=== PATIENT | male | born 1940 | race American Indian/Alaskan Native ===

== ENCOUNTER 2019-09-18 14:15 | Emergency (ER) | payer MEDICARE ==
[2019-09-18 14:39] VITALS: BP 100/60
--- NOTE | 2019-09-18 15:09 | Emergency Department Report ---
ED Shortness of Breath HPI - General Chief Complaint: Dyspnea/Respdistress Stated Complaint: SOB Time Seen by Provider: 09/18/19 15:03 Source: EMS Mode of arrival: Stretcher Limitations: No Limitations - History of Present Illness Initial Comments: Patient is an 78-year-old male that presents emergency room with complaints of shortness of breath. Patient states he is feeling more short of breath. Patient states he discharged from [facility] yesterday. Patient states he recently had a right knee replacement and then diagnosed with a PE. Patient is currently on request. Patient states shortness of breath is worsening. Patient denies chest pain. Patient denies fever and chills per patient denies cough. Patient states his shortness of breath is worse with exertion and movement. Patient states his shortness of breath is better with rest. Patient states when EMS picked him up he asked for them to take him to [place] but the ambulance staff refuse. Patient states that his oxygen saturation was 96% when checked by EMS. Patient states that EMS put him on 3 L of oxygen and it made him feel better. MD Complaint: shortness of breath -: Sudden Severity: severe Consistency: constant Improves With: oxygen, rest Worsens With: exertion, movement Known History Of: other Context: other Associated Symptoms: denies other symptoms Treatments Prior to Arrival: oxygen - Related Data Home Oxygen Therapy: No ED Review of Systems ROS: Stated complaint: SOB Other details as noted in HPI Constitutional: denies: chills, fever Eyes: denies: eye pain, eye discharge, vision change ENT: denies: ear pain, throat pain Respiratory: shortness of breath, SOB with exertion, SOB at rest. denies: cough, wheezing Cardiovascular: dyspnea on exertion. denies: chest pain, palpitations Endocrine: no symptoms reported Gastrointestinal: denies: abdominal pain, nausea, diarrhea Genitourinary: denies: urgency, dysuria Musculoskeletal: denies: back pain, joint swelling, arthralgia Skin: denies: rash, lesions Neurological: denies: headache, weakness, paresthesias Psychiatric: denies: anxiety, depression Hematological/Lymphatic: denies: easy bleeding, easy bruising ED Past Medical Hx - Past Medical History Previous Medical History?: Yes Hx Hypertension: Yes Hx Pulmonary Embolism: Yes - Surgical History Past Surgical History?: Yes Additional Surgical History: Knee surgery right 09/12/19 - Family History Family history: no significant - Social History Smoking Status: Never Smoker Substance Use Type: None ED Physical Exam - General Limitations: No Limitations General appearance: alert, in no apparent distress - Head Head exam: Present: atraumatic, normocephalic - Eye Eye exam: Present: normal appearance - ENT ENT exam: Present: mucous membranes moist - Neck Neck exam: Present: normal inspection - Respiratory Respiratory exam: Present: normal lung sounds bilaterally. Absent: respiratory distress - Cardiovascular Cardiovascular Exam: Present: regular rate, normal rhythm. Absent: systolic murmur, diastolic murmur, rubs, gallop - GI/Abdominal GI/Abdominal exam: Present: soft, normal bowel sounds - Rectal Rectal exam: Present: deferred - Extremities Exam Extremities exam: Present: normal inspection - Back Exam Back exam: Present: normal inspection - Neurological Exam Neurological exam: Present: alert, oriented X3 - Psychiatric Psychiatric exam: Present: normal affect, normal mood - Skin Skin exam: Present: warm, dry, intact, normal color. Absent: rash ED Course Vital Signs 09/18/19 09/18/19 14:30 16:39 Pulse Rate 89 Respiratory 18 18 Rate Blood Pressure 100/60 O2 Sat by Pulse 99 99 Oximetry - Reevaluation(s) Reevaluation #1: Initial evaluation done. Patient and family member have requested the patient be transferred to [place]. Patient and family are states that they asked to go to [place] but EMS refused. I will consult with [place] transfer center. 09/18/19 15:03 Reevaluation #2: Patient has decided to sign out AMA. Patient refuses transfer. Patient states he feels fine and wants to go home. Patient signed AMA form. Patient also signed a refusal transfer form. I discussed the risks with patient and family. Both voiced understanding of risks. 09/18/19 15:59 - Consultations Consultation #1: [place] transfer center consult. 09/18/19 15:09 Patient has been accepted for transfer to [facility] by Dr. Kenney. Dr. Kenney has accepted the patient. 09/18/19 15:45 ED Medical Decision Making - Medical Decision Making Patient is an 78-year-old male that presents emergency room with complaints of shortness of breath. Patient recently discharged from [place] less than 24 hours ago. Patient was diagnosed with a PE 1001 I look was. Patient initially stated he wanted be transferred back to [place]. I facilitated transfer back to [place] and then when it was time to be transferred patient decided to sign out AMA. I discussed all the risks with patient. Patient voiced understanding of risks. Patient signed AMA form patient also signed the refusal transfer form. Patient given discharge instructions. Patient given return to ER precautions. - Differential Diagnosis shortness of breath. PE. Critical care attestation.: If time is entered above; I have spent that time in minutes in the direct care of this critically ill patient, excluding procedure time. ED Disposition Clinical Impression: SOB (shortness of breath), BROWN (dyspnea on exertion) Pulmonary embolism Qualifiers: Pulmonary embolism type: unspecified Chronicity: acute Acute cor pulmonale presence: without acute cor pulmonale Qualified Code(s): I26.99 - Other pulmonary embolism without acute cor pulmonale Disposition: 07 LEFT AGAINST MED ADVICE Is pt being admited?: No Does the pt Need Aspirin: No Condition: Undetermined Additional Instructions: Patient to follow-up with primary care in 2-3 days. Patient to return to ER condition worsens. Referrals: NADIA LEE MD [Primary Care Provider] - 2-3 Days Time of Disposition: 16:00
== END 2019-09-18 16:00 | disposition left against medical advice (07) ==
LOC: ED 14:15
DX: I26.99 Other pulmonary embolism without acute cor pulmonale (principal); I10 Essential (primary) hypertension; Z98.890 Other specified postprocedural states